=== PATIENT | female | born 2000 | race Caucasian/White ===

== ENCOUNTER 2023-05-10 11:22 | Emergency (ER) | payer BC, SELFPAY ==
[2023-05-10 11:35] VITALS: BP 107/67; PULSE 76; RESP 18; TEMP 36.6; O2SAT 100; BMI 20.1
--- NOTE | 2023-05-10 13:49 | ED_ITS ---
HPI - General Adult General Time Seen by Provider: 13:49 Date Seen: 05/10/23 Chief complaint: Abdominal Pain Stated complaint: Constipation 1 week Time Seen by Provider: 05/10/23 13:48 Source: patient and RN notes reviewed Mode of arrival: ambulatory Limitations: no limitations History of Present Illness HPI narrative: This 22-year-old female is coming in with concern of no stool for over a week. She states she is eating and drinking normally but has had some abdominal pain. She is not having any currently. There has been no fevers. She has been taking nory-udi-nvgviha laxatives, has been taking MiraLax daily without results. She is not sexually active, no chance of . She is taking no other medicines outside of the 1 she is using to try to remedy constipation. No nausea or vomiting. She is a student at [employer]. Related Data Home Medications Medication Instructions Recorded Confirmed No Known Home Medications 08/16/22 08/16/22 Allergies Allergy/AdvReac Type Severity Reaction Status Date / Time No Known Drug Allergies Allergy Verified 08/16/22 00:50 Review of Systems Narrative: As per HPI. PFSH PFS Medical History No significant past medical history Surgical History No significant past surgical history Social History Smoking Status: Current every day smoker Do you use any of these nicotine containing products: None Second hand tobacco smoke exposure: No How often do you have a drink containing alcohol: never How often do you have six or more drinks on one occasion: Never AUDIT-C Alcohol total score: 0 Non-prescribed substance use: marijuana (any form) service: No Exam Const: Vital Signs, click to edit/add: Vital Signs - 24 hr 05/10/23 11:35 Temperature 97.9 F Pulse Rate [Right Pulse Oximeter] 76 Respiratory Rate 18 Blood Pressure [Ri ght Upper Arm] 107/67 Pulse Oximetry 100 Oxygen Delivery Me thod Room Air This 22-year-old female is alert, interactive, no apparent distress. Very well kept. Sclera clear, symmetrical facial function, speech normal. Lungs are clear, good air entry no wheezing or crackles. CV regular rate and rhythm, no murmur, normal S1 and S2. Abdomen is soft, normal bowel sounds, no rebound or guarding, no organomegaly, no tenderness anywhere. Documenting provider has reviewed patient's vital signs: yes Course Course ED Course: Patient's history and exam are reassuring. We will get a flat and upright of her abdomen to see the stool burden, rule out any concerning appearance of the bowel for obstruction. She certainly has no clinical symptoms of obstructive pathology. Reevaluation(s) Time of Reevaluation #1: 15:40 Reevaluation #1: Reviewed with patient that the flat and upright are showing no evidence of obstruction but she does have moderate amount of stool. This would go with constipation for her. At this time we will work on trying to resolve her constipation but do not feel that she needs anything else done at this time. We will send her home with an Enemeez. She feels she can do this at home herself and would prefer to do this. We discussed dietary management with adequate fluids and increasing fiber in her diet. Vital Signs Vital signs: Initial Vital Signs Temperature 97.9 F 05/10/23 11:35 Temperature Source Temporal Artery Scan 05/10/23 11:35 Pulse Rate 76 05/10/23 11:35 Respiratory Rate 18 05/10/23 11:35 Blood Pressure 107/67 05/10/23 11:35 Blood Pressure Mean 80 05/10/23 11:35 Blood Pressure Position Sitting 05/10/23 11:35 Pulse Oximetry 100 05/10/23 11:35 Oxygen Delivery Method Room Air 05/10/23 11:35 Vital Signs Temperature 97.9 F 05/10/23 11:35 Pulse Rate 76 05/10/23 11:35 Respiratory Rate 18 05/10/23 11:35 Blood Pressure 107/67 05/10/23 11:35 Pulse Oximetry 100 05/10/23 11:35 Oxygen Delivery Method Room Air 05/10/23 11:35 Temperature 97.9 F 05/10/23 11:35 Pulse Rate 76 05/10/23 11:35 Respiratory Rate 18 05/10/23 11:35 Blood Pressure 107/67 05/10/23 11:35 Pulse Oximetry 100 05/10/23 11:35 Oxygen Delivery Method Room Air 05/10/23 11:35 Medical Decision Making Imaging Data Abdominal x-ray: Attestation: I have reviewed the pertinent imaging results. Radiologist's impression: Patient: MARKUS FUNG Facility:?[facility] Patient ID:?[id number] Site Patient ID:?[id number]. Site :?[id number] Study:?XRay Abdomen/Pelvis 2 VIEW-05/10/2023 2:37:33 PM Ordering Physician:?Lucy Chaidez Final Report: INDICATION: Constipation, no BM for a week. COMPARISON: None. TECHNIQUE: Abdomen 2 view. FINDINGS: Nonobstructive bowel gas pattern. Moderate amount of stool throughout the colon. No sign of pneumatosis or free air. No pathologic calcification. The lung bases are clear. Left convex lumbar curve. IMPRESSION: 1. Nonobstructive bowel gas pattern. 2. Moderate amount of stool. Dictated by Carlie Vance MD @ 05/10/2023 3:31:34 PM (Electronic Signature) Critical Care Time Critical Care Time Critical Care Time: No Discharge Plan Discharge Clinical Impression: Constipation Patient Disposition: Home, Self-Care Condition: Stable Instructions: Constipation (ED), High Fiber Diet (ED) Additional Instructions: Use the Enemeez when you get home. Try to retained liquid within the rectal vault as long as you can before evacuating it. Recommend staying on the MiraLax 17 g daily. Work on healthy diet with increasing natural fiber and making sure you are taking adequate fluids. You can add in a laxative like senna, up to 2 pills twice a day if you have not had a bowel movement after 3 days. If you develop abdominal pain, nausea vomiting in the context of constipation, do recommend re-evaluation. Activity Level: Activity as Tolerated Discharge Diet: High Fiber Prescriptions: No Action No Known Home Medications Follow Up/Referrals: Provider,Not a Local [Primary Care Provider] - Stand Alone Forms: Kaggle Info Instructions
--- NOTE | 2023-05-10 14:02 | CRLHL7_ITS ---
For Patients: As a result of the Century Cures Act, medical imaging exams and procedure reports are released immediately into your electronic medical record. You may view this report before your referring provider. If you have questions, please contact your health care provider. INDICATION: Constipation, no BM for a week. COMPARISON: None. TECHNIQUE: Abdomen 2 view. FINDINGS: Nonobstructive bowel gas pattern. Moderate amount of stool throughout the colon. No sign of pneumatosis or free air. No pathologic calcification. The lung bases are clear. Left convex lumbar curve. IMPRESSION: 1. Nonobstructive bowel gas pattern. 2. Moderate amount of stool. Dictated by Carlie Vance MD @ 05/10/2023 3:31:34 PM (Electronically Signed)
[2023-05-10 15:45] VITALS: PULSE 83; RESP 16; O2SAT 99
[2023-05-10] MEDS: DOCUSATE SODIUM/BENZOCAINE 5 ML ENEMA PR (15:56)
== END 2023-05-10 15:55 | disposition home or self-care (01) ==
PROVIDERS: Emergency Provider Family Medicine
DX: K59.00 Constipation, unspecified (principal)
CPT/HCPCS: 74019; 99282; 99283; A9270

== ENCOUNTER 2024-09-17 13:13 | Outpatient (CLI) | payer BC, SELFPAY | END 2024-09-17 13:14 | disposition home or self-care (01) | PROVIDERS: Visit Provider Registered Nurse | DX: A53.0 Latent syphilis, unspecified as early or late (principal); Z11.3 Encounter for screening for infections with a predominantly sexual mode of transmission | CPT/HCPCS: 86038; 86592 ==

== ENCOUNTER 2024-10-20 14:17 | Emergency (ER) | payer BC, SELFPAY ==
[2024-10-20] VITALS (37 sets, daily range): BP systolic 108–128; BP diastolic 61–82; PULSE 104–179; RESP 10–34; TEMP 37.2; O2SAT 89–100; BMI 20.9
--- OUTSIDE RECORDS SUMMARY | 2024-10-20 14:19 | XMS_ITS | Clinical Summary ---
Author Organization [facility] Address [address] [place] [address] Care Team Providers Care Academic Coach Name Role Phone DcReginaldo OMID Primary Care Provider Source Comments PLEASE NOTE, if this patient is a minor, it may be UNLAWFUL to discuss sensitive information that is contained in these records (such as FAMILY PLANNING, MENTAL HEALTH or SUBSTANCE ABUSE) with the minor patient's parent or other person without the patient's specific authorization.[facility] Allergies Active Allergy Reactions Criticality Noted Date Comments Coconut SOB High 08/13/2017 Coconut Oil, Hydrogenated Anaphylaxis High 07/17/2021 Nuts Hives,Anaphylaxis High 12/15/2003 reacted to peanut - age 5 years avoiding tree nuts preventatively Medications norethindrone-e.es tradioL-iron (LOESTRIN FE 08/04, 28-DAY,) 1 mg-20 mcg (21)/75 mg (7) per tabletIndications: Encounter for contraceptive management, unspecified type Take 1 Tablet by mouth once daily 84 Tablet 3 2 Active Active Problems Problem Noted Date Diagnosed Date Skin rash 07/11/2022 Assessment & Plan (07/11/2022 12:18 PM WIRE TWISTER): Unclear etiology - per patient unchanged 1 mo. Exam unremarkable. -RTC on Sunday- can recheck at that time. Anxiety 07/06/2022 Assessment & Plan (07/06/2022 7:31 AM WIRE TWISTER): Patient report of anxiety. No SI/HI, AVH. Safe currently. Okay to defer to f/u. - warm requested -F/u on Sunday to discuss in depth. Encounter for contraceptive management Assessment & Plan (03/03/2022 11:09 AM CDT): Scheduled same-day contraception appt for nexplanon insert Healthcare maintenance 03/03/2022 Assessment & Plan (07/06/2022 7:31 AM WIRE TWISTER): Requesting routine STI testing. Assessment & Plan (03/03/2022 11:10 AM CDT): Screening labs as ordered Completed college physical form Family History Medical History Relation Name Comments Diabetes Mellitus I Maternal Grandfather Relation Name Status Comments Maternal Grandfather Social History Tobacco Use Types Packs/Day Years Used Date Smoking Tobacco: Never Smokeless Tobacco: Never Tobacco Cessation:Counseling Given: Not Answered Alcohol Use Standard Drinks/Week Comments Yes 0 (1 standard drink = 0.6 oz pure alcohol) social events, weekends in college, never >5 drinks. Social Connections Answer Date Recorded Connectedness 0 03/28/2024 Financial Resource Strain Answer Date R ecorded Financial Resource Strain 0 2021 Stress Answer Date Recorded Stress 0 02/23/2022 Physical Activity Answer Date Recorded Physical Activity 0 02/23/2022 Food Insecurity Answer Date Recorded Food 0 04/10/2024 Transportation Needs Answer Date Record ed Transportation 0 02/23/2022 Housing Stability Answer Date Recorded Housing 0 02/23/2022 Safety and Environment Answer Date Dariusz rded Safety 0 02/23/2022 Utilities Answer Date Recorded Utilities 0 02/23/2022 Employment Answer Date Recorded Stress 0 03/28/2024 Comments Unknown Sex and Gender Information Value Date Recorded Sex Assigned at Female 02/23/2022 12:27 PM PDT Legal Sex Female 11:05 AM PDT Gender Identity Female 02/23/2022 12:27 PM PDT Sexual Orientation Straight 02/23/2022 12 :27 PM PDT Last Filed Vital Signs Vital Sign Reading Time Taken Comments Blood Pressure 103/63 07/03/2022 1:43 PM WIRE TWISTER Pulse 78 07/03/2022 1:43 PM WIRE TWISTER Temperature 37.3 C (99.1 F) 07/03/2022 1:43 PM WIRE TWISTER Respiratory Rate - - Oxygen Saturation - - Inhaled Oxygen Concentration - - Weight 48.2 kg (106 lb 3.2 oz) 07/03/2022 1:43 P M WIRE TWISTER Height 158 cm (5' 2.21) 02/23/2022 5:01 PM CDT Body Mass Index 19.29 02/23/2022 5:01 PM CDT Plan of Treatment Health Maintenance Due Date Last Done Comments HPV Screening 2002 Pap + HPV 2002 Tobacco Screening 2002 Relationship Safety Screening/Counseling 2017 Imm-DTaP/Tdap/Td (7 - Td or Tdap) 03/04/2023 03/04/2013, 12/25/2007, 03/18/2004, Additional history exists Chlamydia Screening 07/03/2023 07/03/2022 Gonorrhea Screening 07/03/2023 07/03/2022 Cervical Cancer Screening 2023 Pap Smear 2023 [id number] ( season) 2024 021, 12/16/2020 Imm-Influenza (#1) 2024 05/20/2014, 1 2002, 05/08/2003 Alcohol and Drug Screen 07/16/2024 Depression Annual Screen 07/16/2024 07/03/2022 Hypertension Screening (#1) 07/02/2025 Imm-Hepatitis B Completed 05/08/2003, 11/13, 2002 Imm-Varicella Completed 12/25/2007, 09/09/2003 Imm-Hepatitis A Completed 10/20/2013, 03/08/2011 Imm-HPV Completed 01/04/2015, 0812/2013, 10/20/2013 HIV Screening Completed 02/23/2022 Hepatitis C Screening Completed 02/23/2022 Cervical Ablation/Cold-Knife Conization Discontinued Cervical Cryotherapy Discontinued Colposcopy Discontinued Endometrial Biopsy Discontinued Excision/Leep Discontinued HPV Genotyping Discontinued Vaginal Pap Discontinued Vulvoscopy Discontinued Procedures Procedure Name Priority Date/Time Associated Diagnosis Comments CHLAMYDIA, GONORRHOEAE, AND TRICHOMONAS VAGINALIS, DAVID Routine 07/03/2022 2:58 PM WIRE TWISTER Healthcare maintenance HIV 1/0/2 AG/AB W/CASCADE RFLX SUPPLEMENTAL TESTING Routine 02/23/2022 3:21 PM CDT Preventative health care HEPATITIS C ANTIBODY WITH REFLEX TO HCV, RNA, QUANTITATIVE, REAL-TIME PCR (REFL) Routine 02/23/2022 3:21 PM CDT Preventative health care from Last 3 Months or Most Recently Relevant to Health Maintenance Results * CHLAMYDIA,??GONORRHOEAE, AND??TRICHOMONAS VAGINALIS, DAVID (07/03/2022 2:58 PM WIRE TWISTER) CHLAMYDIA BY DAVID Negative Negative [facility] GONOCOCCUS BY DAVID Negative Negative [facility] TRICH VAG BY DAVID Negative Negative [facility] Swab Pooled specimen from vaginal introitus and rectal swab / Unknown 07/03/2022 2:58 PM WIRE TWISTER 07/03/2022 Narrative [facility] - 07/05/2022 6:08 AM WIRE TWISTER Performed at: [facility] [id number] Machine Iii Coremaker: Kimmy Coleman MD, Phone: [phone] us Antonio Mcdowell MD LAB - NO BLOOD DRAW Final Resu lt [facility] * HEPATITIS C ANTIBODY WITH REFLEX TO HCV, RNA, QUANTITATIVE, REAL-TIME PCR (REFL) (02/23/2022 3:21 PM CDT) HCV AB 0.2 0.0 - 0.9 s/co ratio [facility] Blood Blood / Unknown 02/23/2022 3 :21 PM CDT 02/24/2022 Narrative [facility] - 02/24/2022 10:08 AM CDT Performed at: [facility] [id number] [employer] Coremaker: Jorge A Urbina PhD, Phone: [phone] us Jacquelin Mejia APN LAB - BLOOD DRAW Final Resul t [facility] * HIV 1/0/2 AG/AB W/CASCADE RFLX SUPPLEMENTAL TESTING (02/23/2022 3:21 PM CDT) [facility] Signature HIV SCREEN 4TH GENERATION WRFX Non Reactive Non Reactive [facility] Comment: HIV Negative HIV-1/HIV-2 antibodies and HIV-1 p24 antigen were NOT detected. There is no laboratory evidence of HIV infection. Blood Blood / Unknown 02/23/2022 3 :21 PM CDT 02/24/2022 Narrative [facility] - 02/24/2022 9:09 AM CDT Performed at: [facility] [id number] Machine [employer] Coremaker: Jorge A Urbina PhD, Phone: [phone] us Jacquelin Mejia APN LAB - BLOOD DRAW Final Resul t [facility] from Last 3 Months or Most Recently Relevant to Health Maintenance Insurance [facility] MEDICAID Member Subscriber Plan / Payer (Ef fective 2021-Present) Name:Mariah Fernandez Relation to Subscriber:Self Name:Mariah Fernandez Payer ID:[id number] Group ID:Not on file Type:Medicaid Address: [address] [place] [address] Care Teams Academic Coach Relationship Specialty Start Date End Date Reginaldo Irwin APRN [address] [place] [address] PCP - General 08/22/24
--- NOTE | 2024-10-20 14:35 | ED_ITS ---
HPI - General Adult General Time Seen by Provider: 14:49 Date Seen: 10/20/24 Chief complaint: Back Injury/Pain Stated complaint: back pain, possible UTI Time Seen by Provider: 10/20/24 14:34 History of Present Illness HPI narrative: This 24-year-old female is ambulatory into the ER with complaint of her heart rate being elevated. This started maybe sometime after 11:00 a.m. this morning, she would noted to go up and down. It really was racing and she started complaining of this to her friend that drove her over here from college [place] route. She has not experienced anything like this before. Not aware of any family history of known atrial arrhythmias or SVT. There is a grandmother with a valve problem. She herself has never had any abdominal surgery, is otherwise healthy. She has a Nexplanon in for contraception. She actually was coming over for abdominal pain and cramping. The cramping was in her low back, into her pelvis and low abdomen. Cramping really started on Sunday, she started to have a menstrual cycle on Sunday. She took ibuprofen without relief. She does wonder if she may have urinary tract infection, noticed increased frequency yesterday but not necessarily today. Her main complaint when I come into the room is that she wants her heart to stop feeling like it is racing. She has noted no fevers, no nausea or vomiting, no diarrhea, has been able to eat. No prior abdominal surgery. She denies any illicit stimulants like cocaine, methamphetamines. She did have a cup of coffee this morning but does not have intake of excessive caffeine. Has not done any stimulant drugs like Adderall illicitly or prescribed. She states she typically does not have significant issues with her menses. Related Data Home Medications ?Medication ?Instructions ?Recorded ?Confirmed etonogestrel 68 mg subdermal 1 implant subdermal ONCE 09/17/24 09/17/24 implant (Nexplanon) Previous Rx's ?Medication ?Instructions ?Recorded cephalexin 500 mg tablet 500 mg PO TID #15 tabs 10/20/24 Allergies Allergy/AdvReac Type Severity Reaction Status Date / Time No Known Drug Allergies Allergy Verified 10/20/24 16:53 Review of Systems Status of ROS: Reports: 6 or more systems reviewed and unremarkable except as noted in History and below [facility] Surgical History No significant past surgical history Social History What is your current living situation?: I presently have a place to live Problems where you live: declined to answer In the past 12 months, utilities in danger of being shut off: no In past 12 months, lack of transportation kept you from medical appts, meetings, work, or getting things needed for daily living: yes In the past 12 mos, have been you worried that your food would run out before you had money to buy more?: never true In the past 12 mos, the food you bought just didn't last and you didn't have money to buy more?: never true Smoking Status: Former smoker Do you use any of these nicotine containing products: None Second hand tobacco smoke exposure: No How often do you have a drink containing alcohol: never How often do you have six or more drinks on one occasion: Never AUDIT-C Alcohol total score: 0 Non-prescribed substance use: denies use How often does anyone, including family, friends and others, physically hurt you : never How often does anyone, including family, friends and others, insult or talk down to you: never How often does anyone, including family, friends and others, threaten you with harm: never How often does anyone, including family, friends and others, scream or curse at you: never service: No Health Related Social Needs: transportation insecurity (Z59.82) Exam Const: Vital Signs, click to edit/add: Vital Signs - 24 hr 10/20/24 14:26 10/20/24 14:39 10/20/24 14:40 Temperature 98.9 F Pulse Rate 179 H 174 H Pulse Rate [Pulse Oximeter] 136 H Respiratory Rate 18 18 21 Blood Pressure 123/70 123/70 Blood Pressure [Ri ght Upper Arm] 116/61 Pulse Oximetry 100 97 100 Oxygen Delivery Me thod Room Air 10/20/24 14:41 10/20/24 14:45 10/20/24 14:57 Temperature Pulse Rate 162 H 146 H Pulse Rate [Pulse Oximeter] Respiratory Rate 17 18 20 Blood Pressure 128/66 Blood Pressure [Ri ght Upper Arm] Pulse Oximetry 100 100 Oxygen Delivery Me thod 10/20/24 15:00 10/20/24 15:00 10/20/24 15:15 Temperature Pulse Rate 151 H 150 H Pulse Rate [Pulse Oximeter] Respiratory Rate 23 25 H Blood Pressure Blood Pressure [Ri ght Upper Arm] Pulse Oximetry 100 100 100 Oxygen Delivery Al thod 10/20/24 15:30 10/20/24 15:32 10/20/24 15:33 Temperature Pulse Rate 138 H 150 H 147 H Pulse Rate [Pulse Oximeter] Respiratory Rate 18 17 10 L Blood Pressure 113/70 Blood Pressure [Ri ght Upper Arm] Pulse Oximetry 100 100 99 Oxygen Delivery Al thod 10/20/24 15:45 10/20/24 16:00 10/20/24 16:02 Temperature Pulse Rate 145 H 139 H 138 H Pulse Rate [Pulse Oximeter] Respiratory Rate 24 17 15 Blood Pressure 108/71 Blood Pressure [Ri ght Upper Arm] Pulse Oximetry 100 100 100 Oxygen Delivery Al thod 10/20/24 16:20 10/20/24 16:21 10/20/24 16:30 Temperature Pulse Rate 146 H 158 H 136 H Pulse Rate [Pulse Oximeter] Respiratory Rate 26 H 34 H 15 Blood Pressure 119/82 Blood Pressure [Ri ght Upper Arm] Pulse Oximetry 99 100 98 Oxygen Delivery Al thod 10/20/24 16:52 10/20/24 17:00 10/20/24 17:12 Temperature Pulse Rate 150 H 144 H 143 H Pulse Rate [Pulse Oximeter] Respiratory Rate 24 Blood Pressure 117/76 Blood Pressure [Ri ght Upper Arm] Pulse Oximetry 100 100 100 Oxygen Delivery Al thod 10/20/24 17:13 10/20/24 17:15 10/20/24 17:30 Temperature Pulse Rate 140 H 132 H 129 H Pulse Rate [Pulse Oximeter] Respiratory Rate 30 H 19 14 Blood Pressure Blood Pressure [Ri ght Upper Arm] Pulse Oximetry 100 100 100 Oxygen Delivery Al thod 10/20/24 17:45 10/20/24 18:00 10/20/24 18:15 Temperature Pulse Rate 128 H 125 H 138 H Pulse Rate [Pulse Oximeter] Respiratory Rate 16 21 15 Blood Pressure Blood Pressure [Ri ght Upper Arm] Pulse Oximetry 100 100 99 Oxygen Delivery Al thod 10/20/24 18:30 10/20/24 18:40 10/20/24 18:45 Temperature Pulse Rate 123 H 115 H 122 H Pulse Rate [Pulse Oximeter] Respiratory Rate 18 Blood Pressure 108/69 Blood Pressure [Ri ght Upper Arm] Pulse Oximetry 100 100 89 Oxygen Delivery Me thod This 24-year-old female looks anxious but is alert, interactive, no apparent distress. Sclera clear, conjugate gaze, symmetrical facial function, able to speak in complete sentences. Neck is supple, no masses, no adenopathy, no thyromegaly masses or nodules. Lungs are clear, good air entry, no wheezing or crackles. CV fast, do not hear any murmur. While I am in with her, she has an episode where her heart rate goes up to 170s and 180s, regular on the monitor. Do have her try to Valsalva and does not bring it down. She seems to come down naturally on her own over few minutes back into sinus tachycardia range in the 140s. Abdomen is soft, flat, nontender, no organomegaly, no rebound or guarding. She really has no abdominal tenderness at this time. She was ambulatory into the ED of her own accord. Her arrival EKG that nursing staff got on arrival was sinus tachycardia at 149 beats per minute. Documenting provider has reviewed patient's vital signs: yes Course Course ED Course: This patient is presenting with tachycardia, this was not her primary complaint, she admits she started feeling her heart racing on her way over here. She did have escalation of her heart rate on the monitor while I was in with her to 170s and 180s, regular. This certainly could be some aberrant atrial tachycardia, potentially SVT. Will initiate some IV fluids, consider adenosine. However her arrival heart rate an EKG with sinus tachycardia at 1:49 a.m.. This makes me a little hesitant to give adenosine immediately. Her heart rate did come back down to the 140s after that brief interlude of elevation. Will get a chest x- ray, need to consider her abdominal etiology which was what she was coming in for. Will check labs, get a chest x-ray, have her on monitoring. Reevaluation(s) Time of Reevaluation #1: 16:24 Reevaluation #1: Patient's heart rate is 149, she just came back from the bathroom. She states she does not feel her heart rate being elevated at this time. She and I discussed that her white blood count is elevated, certainly could be demargination but we really need to make sure that she isn't having abdominal pain from some other etiology, do not want to miss any surgical etiology like atypical presentation of appendicitis. We will continue to monitor her heart rate. She has provided urinalysis and has had some urinary symptoms, will rule out UTI or pyelonephritis. Time of Reevaluation #2: 18:14 Reevaluation #2: Patient stated she was feeling much better. Her heart rate was 110 to 120s when I went in but as a started talking, she went back up to the 140s. We reviewed her CT scan. Did review that she had physiologic follicle on the right ovary with an ovarian cyst. Also reviewed the extravasation within the right renal calyx, unclear of the significance or the definite etiology of this. I would favor treating her for urinary tract infection given she is presenting with some symptoms. I will give her another L of fluids, 2 g IV Rocephin for treatment for urinary tract infection. She has no obstructing stones, but did discuss with her that if her heart rate is not coming down with the interventions, would favor putting her in the hospital for observation. Heart rate can go up with infection. She has no other signs or symptoms of sepsis or significant overwhelming infection. We did not initially get a lactate, will recheck that though. If it is not elevated after L of fluids, this will be very reassuring. We will allow her to eat and drink at this time, make sure she is tolerating t hat. Time of Reevaluation #3: 19:59 Reevaluation #3: Patient is feeling better, heart rate was at 1:07 a.m.. She would like to try to go home. Will send in antibiotics to the pharmacy for her. Did review signs and symptoms for return. Vital Signs Vital signs: Initial Vital Signs Temperature 98.9 F 10/20/24 14:26 Temperature Source Temporal Artery Scan 10/20/24 14: Pulse Rate 136 H 10/20/24 14:26 Respiratory Rate 18 10/20/24 14:26 Blood Pressure 116/61 10/20/24 14: Blood Pressure Mean 79 10/20/24 14:26 Blood Pressure Position Sitting 10/20/24 14:26 Pulse Oximetry 100 10/20/24 14:26 Oxygen Delivery Method Room Air 10/20/24 14:26 Vital Signs Temperature 98.9 F 10/20/24 14:26 Pulse Rate 136 H 10/20/24 14:26 Respiratory Rate 18 10/20/24 14:26 Blood Pressure 116/61 10/20/24 14:26 Pulse Oximetry 100 10/20/24 14:26 Oxygen Delivery Method Room Air 10/20/24 14:26 Temperature 98.9 F 10/20/24 14:26 Pulse Rate 122 H 10/20/24 18:45 Respiratory Rate 18 10/20/24 18:40 Blood Pressure 108/69 10/20/24 18:40 Pulse Oximetry 89 10/20/24 18:45 Oxygen Delivery Method Room Air 10/20/24 14:26 Medications Administered Medications: Generic Name Dose Route Start Last Admin Trade Name Freq PRN Reason Stop Dose Admin Sodium Chloride 1,000 mls @ 500 mls/hr 10/20/24 18:10 10/20/24 18:36 0.9 % Sodium Chloride 1000 Ml IV 10/20/24 20:09 500 mls/hr .Q2H VIRGEN Administration Discontinued Medications Generic Name Dose Route Start Last Admin Trade Name Freq PRN Reason Stop Dose Admin Sodium Chloride 1,000 mls @ 1,000 mls/hr 10/20/24 14:58 10/20/24 16:18 0.9 % Sodium Chloride 1000 Ml IV 10/20/24 15:57 Infused .Q1H VIRGEN Infusion Ceftriaxone Sodium 2 gm/ 100 mls @ 200 mls/hr 10/20/24 18:10 10/20/24 19:06 Sodium Chloride IVPB 10/20/24 18:11 Infused ONCE ONE Infusion Medical Decision Making Lab Data Lab results reviewed: Yes I reviewed the patient's lab results Labs: Lab Results 10/20/24 10/20/24 10/20/24 Range/Units 15:05 16:20 19:05 WBC 17.68 H (4.50-11.00) K/uL RBC 4.54 (4.00-5.20) m/uL Hgb 14.2 (12.0-16.0) gm/dL Hct 42.1 (33.0-51.0) % MCV 93 (80-100) fL MCH 31 (26-34) pg MCHC 34 (32-36) gm/dL RDW Coeff of Ethel 11.8 (11.5-15.5) % Plt Count 338 (140-440) K/uL Neut % (Auto) 85.0 H (42.0-72.0) % Lymph % (Auto) 8.2 L (20-44) % [place] % (Auto) 6.2 (0.0-11.0) % Eos % (Auto) 0.2 (0.0-7.0) % Baso % (Auto) 0.2 (0.0-3.0) % Neut # (Auto) 15.00 H (1.7-7.0) K/uL Lymph # (Auto) 1.40 (0.90-2.90) K/uL [place] # (Auto) 1.10 H (0.00-0.90) K/UL Eos # (Auto) 0.00 (0.00-0.50) K/uL Baso # (Auto) 0.00 (0.00-0.30) K/uL Abs Immat Gran (auto) 0.00 (0.00-0.30) K/uL Imm/Tot Granulo (auto) 0.2 % Sodium 140 (135-149) mmol/L Potassium 3.5 L (3.6-5.1) mmol/L Chloride 106 (96-114) mmol/L Carbon Dioxide 19 L (20-32) mmol/L Anion Gap 15 (7-15) mEq/L BUN 13 (5-24) mg/dL Creatinine 0.7 (0.5-1.5) mg/dL Estimated Creat Clear 99.70 Estimated GFR 125 ml/min Glucose 168 H (60-115) mg/dL Lactate 1.2 (0.5-1.9) mmol/L Calcium 9.6 (8.4-10.6) mg/dL Magnesium 1.9 (1.5-2.6) mg/dL Total Bilirubin 1.0 (0.1-1.5) mg/dL AST 27 (12-35) U/L ALT 22 (4-35) U/L Alkaline Phosphatase 65 (40-150) U/L Troponin I < 0.01 (0.01-0.04) ng/mL NT-Pro-B Natriuret Pep < 20 pg/mL Total Protein 8.2 (6.0-8.3) g/dL Albumin 5.2 H (3.3-5.0) g/dL TSH 0.857 (0.270-4.200) uIU/mL HCG, Qual Negative (Negative) Urine Color Yellow (Yellow) Urine Appearance Cloudy A (Clear) Urine pH 6.0 (5.0-8.5) Ur Specific [place] 1.025 (1.000-1.030) Urine Protein 3+ A (Negative) Urine Glucose (UA) Negative (Negative) Urine Ketones 2+ A (Negative) Urine Blood 3+ A (Negative) Urine Nitrite Negative (Negative) Urine Bilirubin Negative (Negative) Urine Urobilinogen 1.0 (0.2-1.0) Ur Leukocyte Esterase 3+ A (Negative) Urine RBC 5-10 A (0-2) Urine WBC 10-25 A (0-5) Ur Squamous Epith Cells Few (None-Few) Urine Bacteria Many A (None) Imaging Data Chest x-ray: Attestation: I have reviewed the pertinent imaging results. Radiologist's impression: Patient: [facility] Facility:?[facility] Patient ID:?[id number] Site Patient ID:?[id number]. Site :?2002 Study:?XRay-Chest 1 VIEW PORTABLE-10/20/2024 3:17:11 PM Ordering Physician:Lexi Chaidez Final Report: INDICATION: Tachycardia COMPARISON: None. TECHNIQUE: Single frontal radiographic view(s) of the chest. FINDINGS: No substantial pleural effusion. No definite focal pulmonary consolidation. Normal heart size. There is [id number] dextrocurvature of the thoracic spine. No evident acute displaced rib fracture. IMPRESSION: No acute thoracic findings. Dictated by Hernandez Torres MD @ 10/20/2024 3:19:18 PM (Electronic Signature) CT scan - abdomen: Attestation: I have reviewed the pertinent imaging results. Radiologist's impression: Patient: [facility] Facility:?[facility] Patient ID:?[id number] Site Patient ID:?[id number]. Site :?2002 Study:?CT-Abdomen/Pelvis 56CC ISOVUE 370-10/20/2024 4:55:17 PM Ordering Physician:Lexi Chaidez Final Report: INDICATION: Upper abdominal pain, elevated WBC TECHNIQUE: CT abdomen and pelvis acquired with 56 cc Isovue 370 IV contrast. COMPARISON: None. FINDINGS: Lower chest: Unremarkable. Liver: Unremarkable. Normal in size and attenuation. No suspicious masses. Gallbladder and bile ducts: Unremarkable. No stones or inflammation. No biliary dilatation. Pancreas: Unremarkable. No mass or inflammation. Spleen: Unremarkable. Normal in size. No masses. Adrenal glands: Unremarkable. No nodules. Kidneys: High-density material within a right interpolar renal calyx may represent excreted contrast material versus small layering stones. No suspicious masses or hydronephrosis. GI tract: Unremarkable. Normal in caliber. No sign of mass or inflammation. Normal appendix. Vasculature: Abdominal aorta is normal in caliber. Mesenteric arteries are patent. Lymph nodes: No lymphadenopathy. Peritoneum/Abdominal Wall: Unremarkable. No sign of mass or infiltration. No free air or significant free fluid. Pelvis: Right ovarian cyst measuring 2.9 cm, likely a physiologic follicle Bones: Unremarkable for age. IMPRESSION: High-density material within a right interpolar renal calyx may represent excreted contrast material versus small layering stones. Otherwise no acute findings are appreciated. Please note that all CT scans at this facility use dose modulation, iterative reconstruction, and/or weight-based dosing when appropriate to reduce radiation dose to as low as reasonably achievable. Dictated by Sena Fox MD @ 10/20/2024 5:46:09 PM (Electronic Signature) ECG Data Attestation: I personally reviewed and interpreted this ECG as follows: (Sinus tachycardia, 149 beats per minute. Inferior and anterolateral precordial lead nonspecific ST segment changes. Flipped T-waves in the inferior leads.) Prior ECG tracings: not available for review Discharge Plan Discharge Clinical Impression: Sinus tachycardia Urinary tract infection Qualifiers: Urinary tract infection type: acute cystitis Hematuria presence: without hematuria Qualified Code(s): N30.00 - Acute cystitis without hematuria Patient Disposition: Home, Self-Care Condition: Stable Instructions: Urinary Tract Infection in Women (ED), Tachycardia (ED) Additional Instructions: Stay hydrated, drink plenty of fluids. If you develop increasing heart rate, abdominal pain, fever or vomiting in the setting of the urinary tract infection, do need to be re-evaluated. Start oral antibiotics tomorrow evening and take as prescribed. Activity Level: No Restrictions Prescriptions: New cephalexin 500 mg tablet 500 mg PO TID Qty: 15 0RF No Action Nexplanon 68 mg implant 1 implant subdermal ONCE Rx Instructions: as a single dose Follow Up/Referrals: Provider,Not a Local [Primary Care Provider] - Stand Alone Forms: [facility] Info Instructions
--- NOTE | 2024-10-20 14:57 | CRLHL7_ITS ---
For Patients: As a result of the Cures Act, medical imaging exams and procedure reports are released immediately into your electronic medical record. You may view this report before your referring provider. If you have questions, please contact your health care provider. INDICATION: Tachycardia COMPARISON: None. TECHNIQUE: Single frontal radiographic view(s) of the chest. FINDINGS: No substantial pleural effusion. No definite focal pulmonary consolidation. Normal heart size. There is dtco-jd-kongcsyl dextrocurvature of the thoracic spine. No evident acute displaced rib fracture. IMPRESSION: No acute thoracic findings. Dictated by Hernandez Torres MD @ 10/20/2024 3:19:18 PM (Electronically Signed)
[2024-10-20] MEDS: 0.9 % SODIUM CHLORIDE 1000 ml 1,000 ML IV (15:08)
[2024-10-20 15:29] LABS: Basophils Percent Auto 0.2 % (0.0-3.0); Eosinophils Percent Auto 0.2 % (0.0-7.0); Hematocrit 42.1 % (33.0-51.0); Hemoglobin* 14.2 gm/dL (12.0-16.0); Immature Granulocytes Pct Auto 0.2 %; Lymphocytes Percent Auto 8.2 % (20-44); Mean Corpuscular HGB Conc 34 gm/dL (32-36); Mean Corpuscular Hemoglobin 31 pg (26-34); Mean Corpuscular Volume 93 fL (80-100); Monocytes Percent Auto 6.2 % (0.0-11.0); Platelet Count* 338 K/uL (140-440); RDW Coefficient of Variation % 11.8 % (11.5-15.5); Red Blood Count 4.54 m/uL (4.00-5.20); White Blood Count* 17.68 K/uL (4.50-11.00)
[2024-10-20 15:31] LABS: Slide Review Reflex No
--- OUTSIDE RECORDS SUMMARY | 2024-10-20 15:32 | XMS_ITS | Clinical Summary ---
Author Organization [facility] Address [address] [place] [address] Care Team Providers Care Manager Clinical Applications Name Role Phone DcReginaldo OMID Primary Care [...] 07/11/2022 Assessment & Plan (07/11/2022 12:18 PM GRAB HOOKER): Unclear etiology - per patient unchanged 1 mo. Exam unremarkable. -RTC on Sunday- can recheck at that time. Anxiety 07/06/2022 Assessment & Plan (07/06/2022 7:31 AM GRAB HOOKER): Patient report of anxiety. No SI/HI, AVH. Safe currently. Okay to defer to f/u. - warm requested -F/u on Sunday to discuss in depth. Encounter for contraceptive management Assessment & Plan (03/03/2022 11:09 AM CDT): Scheduled same-day contraception appt for nexplanon insert Healthcare maintenance 03/03/2022 Assessment & Plan (07/06/2022 7:31 AM GRAB HOOKER): Requesting routine STI testing. Assessment & Plan [...] Comments Blood Pressure 103/63 07/03/2022 1:43 PM GRAB HOOKER Pulse 78 07/03/2022 1:43 PM GRAB HOOKER Temperature 37.3 C (99.1 F) 07/03/2022 1:43 PM GRAB HOOKER Respiratory Rate - - Oxygen Saturation - - Inhaled Oxygen Concentration - - Weight 48.2 kg (106 lb 3.2 oz) 07/03/2022 1:43 P M GRAB HOOKER Height 158 cm (5' 2.21) 02/23/2022 5:01 [...] Cervical Cancer Screening 2023 Pap Smear 2023 [id number] ( season) 2024 021, 12/16/2020 Imm-Influenza (#1) [...] TRICHOMONAS VAGINALIS, DAVID Routine 07/03/2022 2:58 PM GRAB HOOKER Healthcare maintenance HIV 1/0/2 AG/AB W/CASCADE RFLX SUPPLEMENTAL TESTING Routine 02/23/2022 3:21 PM CDT Preventative health care HEPATITIS C ANTIBODY WITH REFLEX TO HCV, RNA, QUANTITATIVE, REAL-TIME PCR (REFL) Routine 02/23/2022 3:21 PM CDT Preventative health care from Last 3 Months or Most Recently Relevant to Health Maintenance Results * CHLAMYDIA,??GONORRHOEAE, AND??TRICHOMONAS VAGINALIS, DAVID (07/03/2022 2:58 PM GRAB HOOKER) CHLAMYDIA BY DAVID Negative Negative [facility] GONOCOCCUS BY DAVID Negative Negative [facility] TRICH VAG BY DAVID Negative Negative [facility] Swab Pooled specimen from vaginal introitus and rectal swab / Unknown 07/03/2022 2:58 PM GRAB HOOKER 07/03/2022 Narrative [facility] - 07/05/2022 6:08 AM GRAB HOOKER Performed at: [facility] [id number] Substance Addiction Coordinator: Kimmy Coleman MD, Phone: [phone] us Antonio Mcdowell MD LAB - NO BLOOD DRAW Final Resu lt [facility] * HEPATITIS C ANTIBODY WITH REFLEX TO HCV, RNA, QUANTITATIVE, REAL-TIME PCR (REFL) (02/23/2022 3:21 PM CDT) HCV AB 0.2 0.0 - 0.9 s/co ratio [facility] Blood Blood / Unknown 02/23/2022 3 :21 PM CDT 02/24/2022 Narrative [facility] - 02/24/2022 10:08 AM CDT Performed at: [facility] [id number] Substance Addiction Coordinator: Jorge A Urbina PhD, Phone: [phone] us Jacquelin Mejia APN LAB - BLOOD DRAW Final Resul t [facility] * HIV 1/0/2 AG/AB W/CASCADE RFLX SUPPLEMENTAL TESTING (02/23/2022 3:21 PM CDT) [facility] Signature HIV SCREEN 4TH GENERATION WRFX Non Reactive Non Reactive [facility] Comment: HIV Negative HIV-1/HIV-2 antibodies and HIV-1 p24 antigen were NOT detected. There is no laboratory evidence of HIV infection. Blood Blood / Unknown 02/23/2022 3 :21 PM CDT 02/24/2022 Narrative [facility] - 02/24/2022 9:09 AM CDT Performed at: [facility] [id number] Substance Addiction Coordinator: Jorge A Urbina PhD, Phone: [phone] us Jacquelin Mejia APN LAB - BLOOD DRAW Final Resul t [facility] from Last 3 Months or Most Recently Relevant to Health Maintenance Insurance [facility] MEDICA[facility] Member Subscriber Plan / Payer (Ef fective 2021-Present) Name:Mariah Fernandez Relation to Subscriber:Self Name:Mariah Fernandez Payer ID:[id number] Group ID:Not on file Type:Medicaid Address: [address] [place] [address] Care Teams Manager Clinical Applications Relationship Specialty Start Date End Date Reginaldo Irwin APRN [address] [place] [address] PCP - General 08/22/24
[2024-10-20 15:33] LABS: Albumin* 5.2 g/dL (3.3-5.0); Chloride* 106 mmol/L (96-114); Sodium* 140 mmol/L (135-149)
[2024-10-20 15:34] LABS: Potassium* 3.5 mmol/L (3.6-5.1)
[2024-10-20 15:36] LABS: Alanine Aminotransferase* 22 U/L (4-35); Alkaline Phosphatase* 65 U/L (40-150); Anion Gap 15 mEq/L (7-15); Aspartate Amino Transferase* 27 U/L (12-35); Blood Urea Nitrogen* 13 mg/dL (5-24); Calcium* 9.6 mg/dL (8.4-10.6); Carbon Dioxide* 19 mmol/L (20-32); Creatinine* 0.7 mg/dL (0.5-1.5); Estimated Glomerular Filt Rate 125 ml/min; Glucose* 168 mg/dL (60-115); Total Protein* 8.2 g/dL (6.0-8.3)
[2024-10-20 15:37] LABS: Magnesium* 1.9 mg/dL (1.5-2.6)
[2024-10-20 15:49] LABS: HCG Qualitative Serum* Negative (Negative)
[2024-10-20 15:50] LABS: NT Pro B Type NatriureticPept* < 20 pg/mL; Troponin I* < 0.01 ng/mL (0.01-0.04)
[2024-10-20 16:18] LABS: TSH With Reflex to FT4* 0.857 uIU/mL (0.270-4.200)
--- NOTE | 2024-10-20 16:24 | CRLHL7_ITS ---
For Patients: As a result of the Century Cures Act, medical imaging exams and procedure reports are released immediately into your electronic medical record. You may view this report before your referring provider. If you have questions, please contact your health care provider. INDICATION: Upper abdominal pain, elevated WBC TECHNIQUE: CT abdomen and pelvis acquired with 56 cc Isovue 370 IV contrast. COMPARISON: None. FINDINGS: Lower chest: Unremarkable. Liver: Unremarkable. Normal in size and attenuation. No suspicious masses. Gallbladder and bile ducts: Unremarkable. No stones or inflammation. No biliary dilatation. Pancreas: Unremarkable. No mass or inflammation. Spleen: Unremarkable. Normal in size. No masses. Adrenal glands: Unremarkable. No nodules. Kidneys: High-density material within a right interpolar renal calyx may represent excreted contrast material versus small layering stones. No suspicious masses or hydronephrosis. GI tract: Unremarkable. Normal in caliber. No sign of mass or inflammation. Normal appendix. Vasculature: Abdominal aorta is normal in caliber. Mesenteric arteries are patent. Lymph nodes: No lymphadenopathy. Peritoneum/Abdominal Wall: Unremarkable. No sign of mass or infiltration. No free air or significant free fluid. Pelvis: Right ovarian cyst measuring 2.9 cm, likely a physiologic follicle Bones: Unremarkable for age. IMPRESSION: High-density material within a right interpolar renal calyx may represent excreted contrast material versus small layering stones. Otherwise no acute findings are appreciated. Please note that all CT scans at this facility use dose modulation, iterative reconstruction, and/or weight-based dosing when appropriate to reduce radiation dose to as low as reasonably achievable. Dictated by Sena Fox MD @ 10/20/2024 5:46:09 PM (Electronically Signed)
[2024-10-20 16:51] LABS: Appearance Urine Cloudy (Clear); Bilirubin Urine Negative (Negative); Blood Urine 3+ (Negative); Glucose Urine Negative (Negative); Ketones Urine 2+ (Negative); Leukocyte Esterase Urine 3+ (Negative); Nitrite Urine Negative (Negative); Protein Urine 3+ (Negative); Specific Gravity Urine 1.025 (1.000-1.030)
[2024-10-20 17:15] LABS: Color Urine Yellow (Yellow)
[2024-10-20 17:31] LABS: Bacteria Urine Many; Squamous Epithelial Cell Urine Few (None-Few)
[2024-10-20] MEDS: 0.9 % SODIUM CHLORIDE 1000 ml 1,000 ML 500 ML IV (18:36)
[2024-10-20] MEDS: cefTRIAXone 2 GM in 0.9 % SODIUM CHLORIDE Mini-bag 100 ML IVPB (18:36)
[2024-10-20 19:10] LABS: Lactate* 1.2 mmol/L (0.5-1.9)
== END 2024-10-20 20:08 | disposition home or self-care (01) ==
PROVIDERS: Emergency Provider Family Medicine
DX: R00.0 Tachycardia, unspecified (principal); N39.0 Urinary tract infection, site not specified
CPT/HCPCS: 36415; 71045; 74177; 80050; 80053; 81001; 83605; 83735; 83880; 84443; 84484; 84703; 85025; 87086; 93005; 94761; 96365; 99285; J0696; J7030; Q9967

== ENCOUNTER 2024-12-23 23:18 | Outpatient (CLI) | payer BC, SELFPAY | END 2024-12-23 23:19 | disposition home or self-care (01) | LOC: AMB 12-24 15:04 | PROVIDERS: Visit Provider Family Medicine | DX: T78.1XXA Other adverse food reactions, not elsewhere classified, initial encounter (principal); T78.49XA Other allergy, initial encounter | CPT/HCPCS: A0425; A0427 ==

== ENCOUNTER 2024-12-23 23:59 | Emergency (ER) | payer BC, SELFPAY ==
[2024-12-24] VITALS (7 sets, daily range): BP systolic 99–131; BP diastolic 61–88; PULSE 81–144; RESP 16–24; TEMP 37.5; O2SAT 96–100; BMI 20.1
--- OUTSIDE RECORDS SUMMARY | 2024-12-24 00:01 | XMS_ITS | Clinical Summary ---
Author Organization [facility] Address [address] [place] [address] Care Team Providers Care Sales Planning Coordinator Name Role Phone DcReginaldo OMID Primary Care Provider [phone] Source Comments PLEASE NOTE, if this patient [...] 07/11/2022 Assessment & Plan (07/11/2022 12:18 PM C 13 CATAPULT OPERATOR): Unclear etiology - per patient unchanged 1 mo. Exam unremarkable. -RTC on Sunday- can recheck at that time. Anxiety 07/06/2022 Assessment & Plan (07/06/2022 7:31 AM C 13 CATAPULT OPERATOR): Patient report of anxiety. No SI/HI, AVH. Safe currently. Okay to defer to f/u. - warm requested -F/u on Sunday to discuss in depth. Encounter for contraceptive management Assessment & Plan (03/03/2022 11:09 AM CDT): Scheduled same-day contraception appt for nexplanon insert Healthcare maintenance 03/03/2022 Assessment & Plan (07/06/2022 7:31 AM C 13 CATAPULT OPERATOR): Requesting routine STI testing. Assessment & Plan [...] Comments Blood Pressure 103/63 07/03/2022 1:43 PM C 13 CATAPULT OPERATOR Pulse 78 07/03/2022 1:43 PM C 13 CATAPULT OPERATOR Temperature 37.3 C (99.1 F) 07/03/2022 1:43 PM C 13 CATAPULT OPERATOR Respiratory Rate - - Oxygen Saturation - - Inhaled Oxygen Concentration - - Weight 48.2 kg (106 lb 3.2 oz) 07/03/2022 1:43 P M C 13 CATAPULT OPERATOR Height 158 cm (5' 2.21) 02/23/2022 5:01 PM CDT Body Mass Index 19.29 02/23/2022 5:01 PM CDT Plan of Treatment Health Maintenance Due Date Last Done Comments HPV Screening 2002 Pap + HPV 2002 Tobacco Screening 2002 Relationship Safety Screening/Counseling 2017 Imm-DTaP/Tdap/Td (7 - Td or Tdap) 03/04/2023 03/04/2013, 12/25/2007, 03/18/2004, Additional history exists Anxiety Screening 07/03/2023 07/03/2022 Chlamydia Screening 07/03/2023 07/03/2022 Gonorrhea Screening 07/03/2023 07/03/2022 Cervical Cancer Screening 2023 Pap Smear 2023 [id number] ( season) 2024 021, 12/16/2020 Alcohol and Drug Screen 07/16/2024 Depression Annual Screen 07/16/2024 07/03/2022 Imm-Influenza (Season Ended) 03/16/202511/2013, 06/17/2003, 05/08/2003 Hypertension Screening (#1) 07/02/2025 Imm-Hepatitis B Completed 05/08/2003, 11/13, 2002 Imm-Varicella Completed 12/25/2007, 09/09/2003 Imm-HPV Completed 01/04/2015, 0812/2013, 10/20/2013 HIV Screening Completed 02/23/2022 Hepatitis C Screening Completed 02/23/2022 Cervical Ablation/Cold-Knife Conization Discontinued Cervical Cryotherapy Discontinued Colposcopy Discontinued Endometrial Biopsy Discontinued Excision/Leep Discontinued HPV Genotyping Discontinued Vaginal Pap Discontinued Vulvoscopy Discontinued Procedures Procedure Name Priority Date/Time Associated Diagnosis Comments CHLAMYDIA, GONORRHOEAE, AND TRICHOMONAS VAGINALIS, DAVID Routine 07/03/2022 2:58 PM C 13 CATAPULT OPERATOR Healthcare maintenance HIV 1/0/2 AG/AB W/CASCADE RFLX SUPPLEMENTAL TESTING Routine 02/23/2022 3:21 PM CDT Preventative health care HEPATITIS C ANTIBODY WITH REFLEX TO HCV, RNA, QUANTITATIVE, REAL-TIME PCR (REFL) Routine 02/23/2022 3:21 PM CDT Preventative health care from Last 3 Months or Most Recently Relevant to Health Maintenance Results * CHLAMYDIA,??GONORRHOEAE, AND??TRICHOMONAS VAGINALIS, DAVID (07/03/2022 2:58 PM C 13 CATAPULT OPERATOR) CHLAMYDIA BY DAVID Negative Negative [facility] GONOCOCCUS BY DAVID Negative Negative [facility] TRICH VAG BY DAVID Negative Negative [facility] Swab Pooled specimen from vaginal introitus and rectal swab / Unknown 07/03/2022 2:58 PM C 13 CATAPULT OPERATOR 07/03/2022 Narrative [facility] - 07/05/2022 6:08 AM C 13 CATAPULT OPERATOR Performed at: [facility] [id number] Sales Commissions Analyst: Kimmy Coleman MD, Phone: [phone] us Antonio Mcdowell MD LAB BODY FLUIDS AND STOOLS AMB ULATORY Final Result Performing Organization Address City/[facility]/ZIP Co de Phone Number [facility] * HCV (02/23/2022 3:21 PM CDT) HCV AB 0.2 0.0 - 0.9 s/co ratio [facility] Blood Blood / Unknown 02/23/2022 3 :21 PM CDT 02/24/2022 Narrative [facility] - 02/24/2022 10:08 AM CDT Performed at: [facility] [id number] Sales Commissions Analyst: Jorge A Urbina PhD, Phone: [phone] us Jacquelin Mejia APN LAB - BLOOD DRAW Final Resul t [facility] * HIV (02/23/2022 3:21 PM CDT) HIV SCREEN 4TH GENERATION WRFX Non Reactive Non Reactive [facility] Comment: HIV Negative HIV-1/HIV-2 antibodies and HIV-1 p24 antigen were NOT detected. There is no laboratory evidence of HIV infection. Blood Blood / Unknown 02/23/2022 3 :21 PM CDT 02/24/2022 Narrative [facility] - 02/24/2022 9:09 AM CDT Performed at: - [facility] [address] [id number] Sales Commissions Analyst: Jorge A Urbina PhD, Phone: [phone] us Jacquelin Mejia APN LAB - BLOOD DRAW Final Resul t [facility] from Last 3 Months or Most Recently Relevant to Health Maintenance Insurance [employer] Care Teams Sales Planning Coordinator Relationship Specialty Start Date End Date Reginaldo Irwin APRN [address] [place] [id number] [facility] - General 08/22/24
--- NOTE | 2024-12-24 00:14 | ED_ITS ---
HPI - Allergic Reaction General Time Seen by Provider: 00:14 Date Seen: 12/24/24 Chief complaint: Allergic Reaction Stated complaint: Allergic reaction Time Seen by Provider: 12/24/24 00:13 Source: patient and EMS History of Present Illness HPI narrative: Mariah is a 24-year-old female with past medical history nut allergy who presents to the emergency department with concerns for allergic reaction. Patient presents via EMS. Patient reports that tonight around 2330 she ate a dessert that had cashew paste in it. Patient states that shortly after eating it she developed swelling to her lips, itching to her here, and discomfort in her throat, feeling as if her throat was closing, and swollen. Patient denies any fever, chills, chest pain, shortness of breath, nausea, vomiting, abdominal pain, rash. Patient took 1 tablet of Benadryl along with 2 EpiPens. Patient's friend initially attempted EpiPen in left leg however does not believed it worked. Site is bruised, tender. Patient then had her friend give EpiPen in her right thigh. Patient reports feeling better upon arrival however still reports feeling very anxious. Related Data Previous Rx's ?Medication ?Instructions ?Recorded levonorgestrel-ethinyl estradiol 1 tab PO QDAY #84 tab s 11/14/24 0.1 mg-20 mcg tablet (Aviane) epinephrine 0.3 mg/0.3 mL 0.3 mg (0.3 mL) IM Q5-15M OK N #2 ea 12/24/24 injection, auto-injector (EpiPen 2-Yonathan) Allergies Allergy/AdvReac Type Severity Reaction Status Date / Time No Known Drug Allergies Allergy Verified 11/14/24 08:43 Review of Systems Narrative Past medical history, past surgical history, medications, allergies, family history, and social history were reviewed with the patient. No additional pertinent items. A medically appropriate review of systems was performed with pertinent positives and negatives noted in HPI, all other systems negative. [facility] Surgical History No significant past surgical history Social History Narrative: From [place]. Attending [employer]. What is your current living situation?: I presently have a place to live Problems where you live: declined to answer In the past 12 months, utilities in danger of being shut off: no In past 12 months, lack of transportation kept you from medical appts, meetings, work, or getting things needed for daily living: yes In the past 12 mos, have been you worried that your food would run out before you had money to buy more?: never true In the past 12 mos, the food you bought just didn't last and you didn't have money to buy more?: never true Smoking Status: Former smoker Do you use any of these nicotine containing products: None Second hand tobacco smoke exposure: No How often do you have a drink containing alcohol: 2-4 times a month How many standard drinks containing alcohol do you have on a typical day: 1 or 2 How often do you have six or more drinks on one occasion: Never AUDIT-C Alcohol total score: 2 Non-prescribed substance use: denies use How often does anyone, including family, friends and others, physically hurt you : never How often does anyone, including family, friends and others, insult or talk down to you: never How often does anyone, including family, friends and others, threaten you with harm: never How often does anyone, including family, friends and others, scream or curse at you: never service: No Health Related Social Needs: transportation insecurity (Z59.82) Exam Narrative: Exam Narrative: General: Afebrile, anxious, in distress HEENT: Normocephalic, atraumatic, conjunctiva normal. Posterior pharynx with no erythema, no swelling, no exudates, no tongue swelling, no lip swelling MMM Neck: non-tender, supple Cardio: Tachycardic rate. regular rhythm Resp: Normal work of breathing, no respiratory distress, lungs clear bilaterally, no wheezing, rhonchi, rales Chest/Back: no visual signs of trauma, no midline tenderness, no CVA tenderness Abdomen: soft, non distension, no tenderness, no peritoneal signs Neuro: alert and fully oriented. CN II-XII grossly intact. Grossly normal strength and sensation in all extremities. MSK: no deformities. Normal range of motion Integumentary/Skin: no rash visualized, normal color Psych: Anxious, normal affect, normal behavior Const: Vital Signs, click to edit/add: Vital Signs - 24 hr 12/24/24 00:02 12/24/24 00:48 12/24/24 01:10 Temperature 99.5 F Pulse Rate [Pulse Oximeter] 137 H 144 H Respiratory Rate 24 20 Blood Pressure [Ri ght Upper Arm] 131/88 116/71 Pulse Oximetry 100 100 100 Oxygen Delivery Me thod Room Air Room Air 12/24/24 01:44 12/24/24 02:46 12/24/24 04:05 Temperature Pulse Rate [Pulse Oximeter] 108 H 88 86 Respiratory Rate 18 16 16 Blood Pressure [Ri ght Upper Arm] 99/71 Pulse Oximetry 100 98 96 Oxygen Delivery Me thod Room Air Room Air Room Air 12/24/24 04:51 Temperature Pulse Rate [Pulse Oximeter] 81 Respiratory Rate 16 Blood Pressure [Ri ght Upper Arm] 99/61 Pulse Oximetry 98 Oxygen Delivery Me thod Room Air Course Course ED Course: Mariah is a 24-year-old female with past medical history nut allergy who presents to the emergency department with concerns for allergic reaction. Upon arrival patient is nontoxic appearing, afebrile, anxious, in distress. Patient tachycardic upon arrival with heart rate 137, blood pressure 131/88, oxygen 100% on room air. Patient does report improvement of symptoms, believes her lips are no longer swollen, patient does still complain of some discomfort in her throat. Patient was placed on the cardiac cath lab radiology technologist, treated with IV Benadryl, Solu- Medrol, Pepcid, and 1 L IV fluid bolus. Will plan for continuous close monitoring over the next 4-6 hours. On re-evaluation @ 0200 patient continues to be resting comfortably, no distress. Patient reports improvement of symptoms after IV medication. Patient's heart rate improved to 108 (from 0137). Given received IM epinephrine will continue to monitor, suspect likely discharge after further monitoring. On re-evaluation at 5:00 a.m. patient with continued improvement, feels back to baseline, patient was able to sleep, no current symptoms. Hemodynamically stable and would like to discharge home. Plan for discharge with supportive care, avoidance of any nuts/allergens. Patient will be discharged with prescription for EpiPen. Strict return precautions discussed. Patient understands and agrees the plan. Vital Signs Vital signs: Initial Vital Signs Temperature 99.5 F 12/24/24 00:02 Temperature Source Temporal Artery Scan 12/24/24 00:02 Pulse Rate 137 H 12/24/24 00:02 Respiratory Rate 24 12/24/24 00:02 Blood Pressure 131/88 12/24/24 00:02 Blood Pressure Mean 102 12/24/24 00:02 Blood Pressure Position Semi-Fowlers 12/24/24 00:02 Pulse Oximetry 100 12/24/24 00:02 Oxygen Delivery Method Room Air 12/24/24 00:02 Vital Signs Temperature 99.5 F 12/24/24 00:02 Pulse Rate 137 H 12/24/24 00:02 Respiratory Rate 24 12/24/24 00:02 Blood Pressure 131/88 12/24/24 00:02 Pulse Oximetry 100 12/24/24 00:02 Oxygen Delivery Method Room Air 12/24/24 00:02 Temperature 99.5 F 12/24/24 00:02 Pulse Rate 81 12/24/24 04:51 Respiratory Rate 16 12/24/24 04:51 Blood Pressure 99/61 12/24/24 04:51 Pulse Oximetry 98 12/24/24 04:51 Oxygen Delivery Method Room Air 12/24/24 04:51 Medications Administered Medications: Discontinued Medications Generic Name Dose Route Start Last Admin Trade Name Freq PRN Reason Stop Dose Admin Diphenhydramine HCl 25 mg 12/24/24 00:23 12/24/24 00:32 Diphenhydramine 50 Mg/Ml Inj IVP 12/24/24 00:24 25 mg ONCE ONE Administration Famotidine 20 mg 12/24/24 00:21 12/24/24 00:32 Famotidine 10 Mg/Ml Inj IVP 12/24/24 00:22 20 mg ONCE ONE Administration Sodium Chloride 1,000 mls @ 1,000 mls/hr 12/24/24 00:30 12/24/24 01:44 0.9 % Sodium Chloride 1000 Ml IV 12/24/24 01:29 Infused .Q1H VIRGEN Infusion Methylprednisolone Sodium Succinate 125 mg 12/24/24 00:21 12/24/24 00:34 Methylprednisolone Sod Succ 62.5 Mg/Ml (125) IVP 12/24/24 00:22 125 mg ONCE ONE Administration Critical Care Time Critical Care Time Critical Care Time: Yes Attestation: The patient required my highest level preparedness to intervene emergently and I personally spent this critical care time directly and personally managing the patient. This critical care time included: Obtaining a history; Examining the patient; Pulse oximetry; Ordering and reviewing of studies; Arranging urgent treatment with development of a management plan; Evaluation of patients response to treatment; Frequent reassessment discussions with other providers. This critical care time was performed to assess and manage the high probability of imminent life-threatening deterioration that could result in multiorgan failure. It was exclusive of separate billable procedures and treating other patients and teaching time. Total Critical Care Time in Minutes: 60 Discharge Plan Discharge Clinical Impression: Allergic reaction Patient Disposition: Home, Self-Care Condition: Improved Additional Instructions: Please follow-up with your primary care provider as needed. Please continue on medications. Please avoid any allergens/nuts. Please use EpiPen as needed for severe allergic reaction/anaphylaxis (shortness of breath, throat closing). Please return to the emergency department if any worsening symptoms. Prescriptions: New epinephrine [EpiPen 2-Yonathan] 0.3 mg/0.3 mL auto-injector 0.3 mg IM Q5-15M PRNQty: 2 0RF Rx Instructions: do not exceed 3 doses per episode No Action levonorgestrel-ethinyl estrad [Aviane] 0.1-20 mg-mcg tablet 1 tab PO QDAY Qty: 84 4RF Follow Up/Referrals: Provider,Not a Local [Primary Care Provider, Family Practice] Stand Alone Forms: [employer] Info Instructions
[2024-12-24] MEDS: FAMOTIDINE 10 MG/ML inj 20 MG IVP (00:32)
[2024-12-24] MEDS: diphenhydrAMINE 50 MG/ML inj 25 MG IVP (00:32)
[2024-12-24] MEDS: METHYLPREDNISOLONE SOD SUCC 62.5 MG/ML (125) 125 MG IVP (00:34)
[2024-12-24] MEDS: 0.9 % SODIUM CHLORIDE 1000 ml 1,000 ML IV (00:35)
--- OUTSIDE RECORDS SUMMARY | 2024-12-24 00:39 | XMS_ITS | Clinical Summary ---
Author Organization [facility] Address [address] [place] [address] Care Team Providers Care Legal Recovery Specialist Name Role Phone DcReginaldo OMID Primary Care Provider [phone] Source Comments PLEASE NOTE, if this patient [...] 07/11/2022 Assessment & Plan (07/11/2022 12:18 PM CLIENT LEADER): Unclear etiology - per patient unchanged 1 mo. Exam unremarkable. -RTC on Sunday- can recheck at that time. Anxiety 07/06/2022 Assessment & Plan (07/06/2022 7:31 AM CLIENT LEADER): Patient report of anxiety. No SI/HI, AVH. Safe currently. Okay to defer to f/u. - warm requested -F/u on Sunday to discuss in depth. Encounter for contraceptive management Assessment & Plan (03/03/2022 11:09 AM CDT): Scheduled same-day contraception appt for nexplanon insert Healthcare maintenance 03/03/2022 Assessment & Plan (07/06/2022 7:31 AM CLIENT LEADER): Requesting routine STI testing. Assessment & Plan [...] Comments Blood Pressure 103/63 07/03/2022 1:43 PM CLIENT LEADER Pulse 78 07/03/2022 1:43 PM CLIENT LEADER Temperature 37.3 C (99.1 F) 07/03/2022 1:43 PM CLIENT LEADER Respiratory Rate - - Oxygen Saturation - - Inhaled Oxygen Concentration - - Weight 48.2 kg (106 lb 3.2 oz) 07/03/2022 1:43 P M CLIENT LEADER Height 158 cm (5' 2.21) 02/23/2022 5:01 [...] Cervical Cancer Screening 2023 Pap Smear 2023 [id number] ( season) 2024 021, 12/16/2020 Alcohol and [...] TRICHOMONAS VAGINALIS, DAVID Routine 07/03/2022 2:58 PM CLIENT LEADER Healthcare maintenance HIV 1/0/2 AG/AB W/CASCADE RFLX SUPPLEMENTAL TESTING Routine 02/23/2022 3:21 PM CDT Preventative health care HEPATITIS C ANTIBODY WITH REFLEX TO HCV, RNA, QUANTITATIVE, REAL-TIME PCR (REFL) Routine 02/23/2022 3:21 PM CDT Preventative health care from Last 3 Months or Most Recently Relevant to Health Maintenance Results * CHLAMYDIA,??GONORRHOEAE, AND??TRICHOMONAS VAGINALIS, DAVID (07/03/2022 2:58 PM CLIENT LEADER) CHLAMYDIA BY DAVID Negative Negative [facility] GONOCOCCUS BY DAVID Negative Negative [facility] TRICH VAG BY DAVID Negative Negative [facility] Swab Pooled specimen from vaginal introitus and rectal swab / Unknown 07/03/2022 2:58 PM CLIENT LEADER 07/03/2022 Narrative [facility] - 07/05/2022 6:08 AM CLIENT LEADER Performed at: [facility] [id number] Materials Handling Coordinator: Kimmy Coleman MD, Phone: [phone] us Antonio Mcdowell MD LAB BODY FLUIDS AND STOOLS AMB ULATORY Final Result Performing Organization Address City/[facility]/ZIP Co de Phone Number [facility] * HCV (02/23/2022 3:21 PM CDT) HCV AB 0.2 0.0 - 0.9 s/co ratio [facility] Blood Blood / Unknown 02/23/2022 3 :21 PM CDT 02/24/2022 Narrative [facility] - 02/24/2022 10:08 AM CDT Performed at: [address] [id number] Materials Handling Coordinator: Jorge A Urbina PhD, Phone: [phone] us Jacquelin Mejia APN LAB - BLOOD [...] 9:09 AM CDT Performed at: - [facility] [address] [id number] Materials Handling Coordinator: Jorge A Urbina PhD, Phone: [phone] us Jacquelin Mejia APN LAB - BLOOD DRAW Final Resul t [facility] from Last 3 Months or Most Recently Relevant to Health Maintenance Insurance [employer] Care Teams Legal Recovery Specialist Relationship Specialty Start Date End Date Reginaldo Irwin APRN [address] [place] [id number] [facility] - General 08/22/24
== END 2024-12-24 05:00 | disposition home or self-care (01) ==
PROVIDERS: Emergency Provider Emergency Medicine
DX: T78.1XXA Other adverse food reactions, not elsewhere classified, initial encounter (principal); R22.0 Localized swelling, mass and lump, head
CPT/HCPCS: 94761; 99285; 99291; J1200; J1308; J2919; J7030